=== PATIENT | male | born 1950 | race Caucasian/White ===

== ENCOUNTER 2018-06-19 00:51 | Outpatient (CLI) | payer OTHER, SELFPAY ==
[2018-06-19 11:22] LABS: Abs Immature Grans 0.02 k/cumm (0.0-0.09); Absolute Basophil Count 0.03 k/cumm (0.0-0.2); Absolute Eosinophil Count 0.21 k/cumm (0.0-0.7); Absolute Lymphocyte Count 3.74 k/cumm (1.2-3.4); Absolute Monocyte Count 0.57 k/cumm (0.11-0.7); Absolute Neutrophil Count 5.17 k/cumm (1.2-6.7); Basophils % 0.3; Eosinophils % 2.2; HGB 14.2 g/dL (13.5-17.5); Immature Grans % 0.2; Lymphocytes % 38.4; Mean Corp. HGB Concentration 33.8 g/dL (32.0-36.0); Mean Corpuscular Volume 91.7 fL (80-95); Mean Platelet Volume 10.9 fL (8.0-11.0); Monocytes % 5.9; Platelet Count 128 x1000/uL (130-400); RBC 4.58 m/cumm (4.50-6.00); RBC Distribution Width 14.3 % (11.8-14.1); White Blood Cell Count 9.74 k/cumm (4.4-10.8)
[2018-06-19 11:46] LABS: ALT 158 U/L (12-78); AST 108 U/L (15-37); Albumin 3.9 g/dL (3.4-5.0); Alkaline Phosphatase 71 U/L (46-116); Anion Gap 8.4 mmol/L (3-11); BUN 17 mg/dL (7-18); Bilirubin, Total 0.5 mg/dL (0.2-1.0); CO2 27.6 mmol/L (21.0-32.0); CREATININE 0.98 mg/dL (0.70-1.30); Calcium 9.3 mg/dL (8.5-10.1); Chloride 99 mmol/L (98-107); Glucose 222 mg/dL (70-100); Potassium 4.4 mmol/L (3.5-5.1); Sodium 135 mmol/L (136-145); Total Protein 8.1 g/dL (6.4-8.2)
--- NOTE | 2018-06-19 12:10 | DI.CT_ITS ---
SYMPTOM/DIAGNOSIS: F/U INCIDENTAL LUNG NODE CT CHEST: CT scan of the chest was performed following the uneventful administration of intravenous contrast material. Comparison CT scan is 04/25/17. There is atherosclerosis of the thoracic aorta. No aneurysm or dissection is seen. Heart size is within normal limits. No pericardial effusion is present. Coronary artery calcifications are identified. No significant thoracic adenopathy is present. No pleural effusion or pneumothorax is identified. Paraseptal emphysematous changes are present in the lungs. In addition, mild pulmonary fibrotic changes are seen. Dependent atelectatic changes are seen in the lung bases. No focal consolidating infiltrate is identified. There has been no change in size of the left lower lobe pulmonary nodule. No new pulmonary nodules are present. Tracheobronchial tree is unremarkable. Upper abdominal images again show a cyst in the superior pole of the right kidney. Degenerative changes are seen in the spine. IMPRESSION: Stable left lower lobe pulmonary nodule. The findings were discussed with Dr. Gonzales on the date of the examination.
[2018-06-19] MEDS: Omnipaque 350 MG/ML 100 ML BTL IJ (12:13)
== END 2018-06-19 01:11 ==
PROVIDERS: PCP Nurse Practitioner Family; Visit Provider Internal Medicine Medical Oncology
DX: C34.32 Malignant neoplasm of lower lobe, left bronchus or lung (principal); R91.1 Solitary pulmonary nodule
CPT/HCPCS: 36415; 80053; 71260; 85025; J3490